=== PATIENT | male | born 1970 | race Caucasian/White ===

== ENCOUNTER 2019-09-17 14:34 | Emergency (ER) | payer OTHER, SELFPAY ==
[2019-09-17 14:43] VITALS: BP 153/84; PULSE 57; RESP 13; TEMP 36.6; O2SAT 97
[2019-09-17 15:00] VITALS: BP 133/90; PULSE 56; RESP 16; O2SAT 100
[2019-09-17 15:02] LABS: Add Manual Diff / Slide Review NO; Basophils Absolute Auto 100 /uL (0-100); Basophils Percent Auto 0.9 % (0-2); Eosinophils Absolute Auto 100 /uL (0-450); Hematocrit 42.7 % (41-53); Hemoglobin 14.5 g/dL (13.5-17.5); Lymphocytes Absolute Auto 1900 /uL (1100-4500); Lymphocytes Percent Auto 29.8 % (25-40); Mean Corpuscular HGB Conc 33.9 % (30-36); Mean Corpuscular Hemoglobin 30.8 PG (26-34); Mean Corpuscular Volume 90.9 fL (80-100); Monocytes Absolute Auto 800 /uL (0-900); Monocytes Percent Auto 11.9 % (3-14); Neutrophils Absolute Auto 3600 /uL (1500-7000); Neutrophils Percent Auto 55.4 % (50-75); Platelet Count 264 X10^3/uL (150-400); White Blood Cell Count 6.4 X10^3/uL (4.5-11.0)
[2019-09-17 15:09] LABS: Prothrombin Time 11.3 SECONDS (10.1-12.7)
[2019-09-17 15:11] LABS: PTT Partial Thromboplastin Tim 35 SECONDS (26.4-36.2)
[2019-09-17 15:13] LABS: Alanine Aminotransferase 39 IU/L (21-72); Albumin 4.6 g/dL (3.5-5.0); Albumin Globulin Ratio 1.6 (1.0-2.8); Alkaline Phosphatase 59 U/L (38-126); Aspartate Aminotransferase 37 IU/L (17-59); BUN Creatinine Ratio 15.5 (6-22); Bilirubin Total 0.6 mg/dL (0.2-1.3); Blood Urea Nitrogen 17 mg/dL (9-20); Calcium 9.8 mg/dL (8.4-10.2); Carbon Dioxide 27 mmol/L (22-32); Chloride 106 mmol/L (98-107); Estimated Glomerular Filt Rate > 60.0 mL/min (>60); Globulin 2.8 g/dL (1.7-4.1); Glucose 88 mg/dL (70-100); HEMOLYSIS < 15 (0-50); Lipase 59 U/L (23-300); Potassium 4.1 mmol/L (3.4-5.1); Sodium 141 mmol/L (137-145); Total Protein 7.4 g/dL (6.3-8.2)
--- NOTE | 2019-09-17 15:20 | DI.CT.S_ITS ---
PROCEDURE: CT ABDOMEN PELVIS W CON INDICATIONS: RIGHT LOWER QUADRANT PAIN SINCE LAST TUESDAY TECHNIQUE: After the administration of intravenous contrast, 5 mm thick sections acquired from the diaphragm to the symphysis. 5 mm coronal and sagittal reformats were acquired. For radiation dose reduction, the following was used: automated exposure control, adjustment of mA and/or kV according to patient size. COMPARISON: None. FINDINGS: Image quality: Excellent. ABDOMEN: Lung bases: There is mild dependent atelectasis bilaterally. Heart size is normal. Solid organs: Evaluation of the liver demonstrates no focal hepatic lesions. The gallbladder appears within normal limits without calcified gallstones. Biliary system is non-dilated. Pancreas enhances normally. No peripancreatic fat stranding or fluid collections. No pancreatic duct dilatation. The spleen is normal in size. No adrenal nodules. Kidneys demonstrate no hydronephrosis. There is a small left renal cyst. Peritoneum and bowel: Bowel loops demonstrate normal wall thickness and caliber. The appendix is normal in appearance. There are a few colonic diverticula without acute diverticulitis. No free fluid or air. Nodes and vessels: No retroperitoneal or mesenteric adenopathy by size criteria. Aorta and inferior vena cava are normal in size. Miscellaneous: No ventral hernias. PELVIS: Genitourinary: Bladder wall thickness is normal. There is mild enlargement of the prostate. Miscellaneous: No inguinal hernias or adenopathy. Bones: No suspicious bony lesions. No vertebral body compression fractures. IMPRESSION: 1. No definite acute intra-abdominal abnormality. Specifically, no evidence of appendicitis. Dictated by: Kyrie Arellano M.D. on 09/17/2019 at 16:02 Approved by: Kyrie Arellano M.D. on 09/17/2019 at 16:05
[2019-09-17] MEDS: SODIUM CHLORIDE 0.9% 1,000 ML 1000 ML IV (15:25)
[2019-09-17 16:00] VITALS: BP 125/81; PULSE 54; RESP 18; O2SAT 100
[2019-09-17] MEDS: KETOROLAC 60 MG/2 ML VIAL 30 MG IV (16:40)
--- NOTE | 2019-09-17 17:09 | ED_ITS ---
HPI - Abdominal Pain <[facility] - Last Filed: 09/17/19 17:32> General Chief Complaint: Abdominal Pain Stated Complaint: thinks appendicitis Time Seen by Provider: 09/17/19 14:37 Source: patient Mode of arrival: Ambulatory Limitations: no limitations History of Present Illness HPI narrative: The patient is a 49-year-old male nonsmoker with history of hypertension who presents with a chief complaint of right lower quadrant pain x4 days. He denies any fevers nausea vomiting or diarrhea until this morning when he started vomiting once. He states that the pain has always been his right lower quadrant, nonradiating. He denies any flank pain, current fevers diarrhea. He states he is concerned about appendicitis. Denies any dysuria urgency or frequency. He denies any history of abdominal surgeries, testicular problems, groin pain or dysuria urgency or frequency. He has not taken anything to feel better. Related Data Home Medications Medication Instructions Recorded Confirmed aspirin 81 mg PO DAILY 09/17/19 09/17/19 metoprolol succinate 50 mg PO DAILY 09/17/19 09/17/19 omeprazole 20 mg PO DAILY 09/17/19 09/17/19 Allergies Allergy/AdvReac Type Severity Reaction Status Date / Time No Known Drug Allergies Allergy Verified 09/17/19 15:01 Review of Systems <[facility] - Last Filed: 09/17/19 17:32> Review of Systems Narrative: GENERAL: Denies chills, fatigue, malaise, fever, sweats. HEENT: Denies sinus pain, ear pain, sore throat, difficulty swallowing, dizziness. RESPIRATORY: Denies dyspnea, cough, wheezing, hemoptysis, sputum. CARDIOVASCULAR: Denies chest pain, palpitations, orthopnea, edema, GASTROINTESTINAL: See HPI : Denies dysuria, frequency, incontinence, hematuria, urinary retention. MUSCULOSKELETAL: denies weakness, joint pain, or bony pain SKIN: Denies rash, skin lesions, or other NEUROLOGIC: Denies weakness, headache, numbness, change in speech, confusion, seizures, incoordination. PSYCHIATRIC: No concerning psychosocial issues. 12 point review of systems is negative except for those stated above Patient History <[facility] - Last Filed: 09/17/19 17:32> Medical History (Updated 09/17/19 @ 17:13 by FELICIANO Garcia) Atrial fibrillation (Acute) Hypertension (Acute) Social History Smoking Status: Never smoker Substance Use Type: does not use Exam <FELICIANO Garcia - Last Filed: 09/17/19 17:32> Narrative Exam Narrative: GENERAL: This is a well-nourished, well-developed patient, no acute distress HEAD: Atraumatic. Normocephalic. No temporal or scalp tenderness. EYES: Pupils equal round and reactive. Extraocular motions intact. No scleral icterus. No injection or drainage. ENT: Nose without bleeding, purulent drainage or septal hematoma. Throat without erythema, tonsillar hypertrophy or exudate. Uvula midline. Airway patent. NECK: Trachea midline. No JVD or lymphadenopathy. Supple, nontender, no meningeal signs. CARDIOVASCULAR: Regular rate and rhythm without murmurs, gallops, or rubs. RESPIRATORY: Clear to auscultation. Breath sounds equal bilaterally. No wheezes, rales, or rhonchi. GASTROINTESTINAL: Abdomen soft, tenderness to right lower quadrant palpation, nondistended. No hepato-splenomegaly, or palpable masses. . Active bowel sounds all 4 quadrants. Guarding to palpation of right lower quadrant. Negative Galeas sign. EXTREMITIES: No clubbing, cyanosis, or edema. No joint tenderness, effusion, or edema noted. BACK: Nontender without deformity or crepitance. No flank tenderness. NEURO: AOx3. SKIN: No rash or erythema. Initial Vital Signs Initial Vital Signs: Vital Signs Temperature 97.8 F 09/17/19 14:43 Pulse Rate 57 L 09/17/19 14:43 Respiratory Rate 13 09/17/19 14:43 Blood Pressure 153/84 H 09/17/19 14:43 Pulse Oximetry 97 09/17/19 14:43 <Adam Wick DO - Last Filed: 09/17/19 17:40> Initial Vital Signs Initial Vital Signs: Vital Signs Temperature 97.8 F 09/17/19 14:43 Pulse Rate 57 L 09/17/19 14:43 Respiratory Rate 13 09/17/19 14:43 Blood Pressure 153/84 H 09/17/19 14:43 Pulse Oximetry 97 09/17/19 14:43 Course <FELICIANO Garcia - Last Filed: 09/17/19 17:32> Orders Ordered: ED Orders 09/17/19 14:55 Complete Blood Count AUTO DIFF Stat Comprehensive Metabolic Panel Stat Lipase Stat Partial Thromboplastin Time Stat Prothrombin Time INR Stat 09/17/19 15:20 CT abdomen pelvis w con Stat Discontinued Medications Sodium Chloride (Normal Saline 0.9%) 1,000 mls @ 1,000 mls/hr IV BOLUS ONE Stop: 09/17/19 16:22 Last Infusion: 09/17/19 16:37 Dose: 0 mls/hr Documented by: Admin: 09/17/19 15:25 Dose: 1,000 mls/hr Documented by: SANTIAGO Ketorolac Tromethamine (Toradol) 30 mg IV NOW ONE Stop: 09/17/19 16:36 Last Admin: 09/17/19 16:40 Dose: 30 mg Documented by: SANTIAGO Ondansetron HCl (Zofran) 4 mg IV NOW ONE Stop: 09/17/19 14:46 Last Admin: 09/17/19 15:25 Dose: Not Given Documented by: SANTIAGO Vital Signs Vital signs: Vital Signs - 8 hr 09/17/19 14:43 09/17/19 15:00 09/17/19 16:00 Temperature 97.8 F Pulse Rate 57 L 56 L 54 L Respiratory Rate 13 16 18 Blood Pressure 153/84 H Blood Pressure [Left Arm] 133/90 125/81 Pulse Oximetry 97 100 100 <Adam Wick DO - Last Filed: 09/17/19 17:40> Orders Ordered: ED Orders 09/17/19 14:55 Complete Blood Count AUTO DIFF Stat Comprehensive Metabolic Panel Stat Lipase Stat Partial Thromboplastin Time Stat Prothrombin Time INR Stat 09/17/19 15:20 CT abdomen pelvis w con Stat Discontinued Medications Sodium Chloride (Normal Saline 0.9%) 1,000 mls @ 1,000 mls/hr IV BOLUS ONE Stop: 09/17/19 16:22 Last Infusion: 09/17/19 16:37 Dose: 0 mls/hr Documented by: Admin: 09/17/19 15:25 Dose: 1,000 mls/hr Documented by: SANTIAGO Ketorolac Tromethamine (Toradol) 30 mg IV NOW ONE Stop: 09/17/19 16:36 Last Admin: 09/17/19 16:40 Dose: 30 mg Documented by: SANTIAGO Ondansetron HCl (Zofran) 4 mg IV NOW ONE Stop: 09/17/19 14:46 Last Admin: 09/17/19 15:25 Dose: Not Given Documented by: SANTIAGO Vital Signs Vital signs: Vital Signs - 8 hr 09/17/19 14:43 09/17/19 15:00 09/17/19 16:00 Temperature 97.8 F Pulse Rate 57 L 56 L 54 L Respiratory Rate 13 16 18 Blood Pressure 153/84 H Blood Pressure [Left Arm] 133/90 125/81 Pulse Oximetry 97 100 100 MDM - Abdominal Pain <ESTELITA Garcia- - Last Filed: 09/17/19 17:32> Differential Diagnosis Differential diagnosis: Likely abdominal pain, acute appendicitis, calculus of kidney, constipation and diverticulitis Lab Data Result diagrams: 09/17/19 14:55 09/17/19 14:55 Labs: Lab Results 09/17/19 09/17/19 09/17/19 Range/Units 14:55 14:55 14:55 WBC 6.4 (4.5-11.0) X10^3/uL RBC 4.70 (4.5-5.9) X10^6/uL Hgb 14.5 (13.5-17.5) g/dL Hct 42.7 (41-53) % MCV 90.9 (80-100) fL MCH 30.8 (26-34) PG MCHC 33.9 (30-36) % RDW 13.0 (11.6-14.8) % Plt Count 264 (150-400) X10^3/uL Neut % (Auto) 55.4 (50-75) % Lymph % (Auto) 29.8 (25-40) % [place] % (Auto) 11.9 (3-14) % Eos % (Auto) 2.0 (2-4) % Baso % (Auto) 0.9 (0-2) % Neut # (Auto) 3600 (7950-4972) /uL Lymph # (Auto) 1900 (6643-7289) /uL [place] # (Auto) 800 (0-900) /uL Eos # (Auto) 100 (0-450) /uL Baso # (Auto) 100 (0-100) /uL PT 11.3 (10.1-12.7) SECONDS INR 1.0 (0.9-1.3) APTT 35 (26.4-36.2) SECONDS Sodium 141 (137-145) mmol/L Potassium 4.1 (3.4-5.1) mmol/L Chloride 106 (98-107) mmol/L Carbon Dioxide 27 (22-32) mmol/L BUN 17 (9-20) mg/dL Creatinine 1.10 (0.66-1.25) mg/dL Estimated GFR > 60.0 (>60) mL/min BUN/Creatinine Ratio 15.5 (6-22) Glucose 88 (70-100) mg/dL Calcium 9.8 (8.4-10.2) mg/dL Total Bilirubin 0.6 (0.2-1.3) mg/dL AST 37 (17-59) IU/L ALT 39 (21-72) IU/L Alkaline Phosphatase 59 (38-126) U/L Total Protein 7.4 (6.3-8.2) g/dL Albumin 4.6 (3.5-5.0) g/dL Globulin 2.8 (1.7-4.1) g/dL Albumin/Globulin Ratio 1.6 (1.0-2.8) Lipase 59 (23-300) U/L Point of care testing: Urine Dip Bedside Urine Glucose Negative Bedside Urine Bilirubin - Negative Bedside Urine Ketone - Negative Urine Specific [place] 1.000 Bedside Urine Occult Blood - Negative Bedside Urine pH 7.0 Bedside Urine Protein - Negative Bedside Urine Urobilinogen - Negative Bedside Urine Nitrite - Negative Bedside Urine Leukocytes - Negative Esterase Imaging Data CT scan - pelvis: Radiologist's impression: [address] [address] [address] Scan Report Signed Patient: Dmitry Michele [facility]#: [id number] : 1970Acct:[id number] Age/Sex: 49 / MDate of Service: 09/17/19 Loc: ED Accession Number: [id number] Procedure: CT abdomen pelvis w con Ordering Provider: Sherrie SandersP- PROCEDURE: CT ABDOMEN PELVIS W CON INDICATIONS: RIGHT LOWER QUADRANT PAIN SINCE LAST TUESDAY TECHNIQUE: After the administration of intravenous contrast, 5 mm thick sections acquired from the diaphragm to the symphysis. 5 mm coronal and sagittal reformats were acquired. For radiation dose reduction, the following was used: automated exposure control, adjustment of mA and/or kV according to patient size. COMPARISON: None. FINDINGS: Image quality: Excellent. ABDOMEN: Lung bases: There is mild dependent atelectasis bilaterally. Heart size is normal. Solid organs: Evaluation of the liver demonstrates no focal hepatic lesions. The gallbladder appears within normal limits without calcified gallstones. Biliary system is non-dilated. Pancreas enhances normally. No peripancreatic fat stranding or fluid collections. No pancreatic duct dilatation. The spleen is normal in size. No adrenal nodules. Kidneys demonstrate no hydronephrosis. There is a small left renal cyst. Peritoneum and bowel: Bowel loops demonstrate normal wall thickness and caliber. The appendix is normal in appearance. There are a few colonic diverticula without acute diverticulitis. No free fluid or air. Nodes and vessels: No retroperitoneal or mesenteric adenopathy by size criteria. Aorta and inferior vena cava are normal in size. Miscellaneous: No ventral hernias. PELVIS: Genitourinary: Bladder wall thickness is normal. There is mild enlargement of the prostate. Miscellaneous: No inguinal hernias or adenopathy. Bones: No suspicious bony lesions. No vertebral body compression fractures. IMPRESSION: 1. No definite acute intra-abdominal abnormality. Specifically, no evidence of appendicitis. Dictated by: Kyrie Arellano M.D. on 09/17/2019 at 16:02 Approved by: Kyrie Arellano M.D. on 09/17/2019 at 16:05 [facility] Narrative Medical decision making narrative: The patient is a 49-year-old male who presents with a chief complaint of right lower quadrant pain and vomiting. His lab work was grossly normal, no evidence of leukocytosis. His urine has no signs of infection. Given his guarding on exam, I did obtain a CT abdomen pelvis with contrast to evaluate for surgical in since is such as appendicitis. This came back with no acute findings. The patient was given Toradol in the emergency department. I encouraged at length follow up with primary care provider in the next few days as well as strict return precautions such as abdominal pain with fever, inability keep down fluids etc. Patient has no questions or concerns upon discharge and states understanding of return precautions as well as follow-up care. He has been hemodynamically stable and afebrile throughout stay in the emergency department. <Adam Wick DO - Last Filed: 09/17/19 17:40> Lab Data Labs: Lab Results 09/17/19 09/17/19 09/17/19 Range/Units 14:55 14:55 14:55 WBC 6.4 (4.5-11.0) X10^3/uL RBC 4.70 (4.5-5.9) X10^6/uL Hgb 14.5 (13.5-17.5) g/dL Hct 42.7 (41-53) % MCV 90.9 (80-100) fL MCH 30.8 (26-34) PG MCHC 33.9 (30-36) % RDW 13.0 (11.6-14.8) % Plt Count 264 (150-400) X10^3/uL Neut % (Auto) 55.4 (50-75) % Lymph % (Auto) 29.8 (25-40) % [place] % (Auto) 11.9 (3-14) % Eos % (Auto) 2.0 (2-4) % Baso % (Auto) 0.9 (0-2) % Neut # (Auto) 3600 (9858-1582) /uL Lymph # (Auto) 1900 (4448-5128) /uL [place] # (Auto) 800 (0-900) /uL Eos # (Auto) 100 (0-450) /uL Baso # (Auto) 100 (0-100) /uL PT 11.3 (10.1-12.7) SECONDS INR 1.0 (0.9-1.3) APTT 35 (26.4-36.2) SECONDS Sodium 141 (137-145) mmol/L Potassium 4.1 (3.4-5.1) mmol/L Chloride 106 (98-107) mmol/L Carbon Dioxide 27 (22-32) mmol/L BUN 17 (9-20) mg/dL Creatinine 1.10 (0.66-1.25) mg/dL Estimated GFR > 60.0 (>60) mL/min BUN/Creatinine Ratio 15.5 (6-22) Glucose 88 (70-100) mg/dL Calcium 9.8 (8.4-10.2) mg/dL Total Bilirubin 0.6 (0.2-1.3) mg/dL AST 37 (17-59) IU/L ALT 39 (21-72) IU/L Alkaline Phosphatase 59 (38-126) U/L Total Protein 7.4 (6.3-8.2) g/dL Albumin 4.6 (3.5-5.0) g/dL Globulin 2.8 (1.7-4.1) g/dL Albumin/Globulin Ratio 1.6 (1.0-2.8) Lipase 59 (23-300) U/L Point of care testing: Urine Dip Bedside Urine Glucose Negative Bedside Urine Bilirubin - Negative Bedside Urine Ketone - Negative Urine Specific [place] 1.000 Bedside Urine Occult Blood - Negative Bedside Urine pH 7.0 Bedside Urine Protein - Negative Bedside Urine Urobilinogen - Negative Bedside Urine Nitrite - Negative Bedside Urine Leukocytes - Negative Esterase Discharge Plan Departure Patient Disposition: Home Clinical Impression: Abdominal pain Qualifiers: Abdominal location: right lower quadrant Qualified Code(s): R10.31 - Right lower quadrant pain Discharge Date/Time: 09/17/19 17:23 Instructions: DI for Abdominal Pain-Adult Activity Restrictions/Additional Instructions: Your workup in the emergency department including lab work, CT scan and urinalysis back with no acute findings today. Please follow up with primary care provider in the next few days. In the meantime please use conservative measures such as heat, ice, [id number] medications as needed and able. Please come back to the emergency department for any acute concerns such as abdominal pain with fever, inability keep down fluids etc. Prescriptions: No Action metoprolol succinate 50 mg tablet extended release 24 hr 50 mg PO DAILY RF: 0 aspirin 81 mg tablet,delayed release (DR/EC) 81 mg PO DAILY RF: 0 omeprazole 20 mg capsule,delayed release(DR/EC) 20 mg PO DAILY RF: 0 Referrals: Fareed Price MD [Primary Care Provider] - <Adam Wick DO - Last Filed: 09/17/19 17:40> Sign Out Provider Sign Out Attestation: I was available for consultation during this patient's emergency department visit. This chart is signed by myself for administrative purposes only. I did not have direct contact with this patient during this visit. They were seen independently by the APC.
== END 2019-09-17 17:23 | disposition home or self-care (01) ==
PROVIDERS: Emergency Provider Nurse Practitioner Family
DX: R10.31 Right lower quadrant pain (principal)
CPT/HCPCS: 36415; 74177; 80053; 81003; 83690; 85025; 85610; 85730; 96374; 99283; 99284; J1885; Q9967